=== PATIENT | female | born 1945 | race Caucasian/White ===

== ENCOUNTER → 2018-01-08 | Outpatient (CLI) | payer OTHER | LOC: BHFA 09:30 | PROVIDERS: ATTEND Internal Medicine Cardiovascular Disease | DX: I10 Essential (primary) hypertension (principal); E78.5 Hyperlipidemia, unspecified ==

== ENCOUNTER 2018-05-08 06:52 | Day surgery (SDC) | payer OTHER ==
[2018-05-08] MEDS ORDERED: LR 1,000 ML IV ONE ×2 (07:18→09:09)
[2018-05-08] MEDS ORDERED: LIDOCAINE 1% 2 ML INJ ID PRN (07:18)
[2018-05-08] MEDS ORDERED: fentaNYL 100 MCG/2 ML INJ ONE (08:24)
[2018-05-08] MEDS ORDERED: PROPOFOL/EMULSION 500 MG/50 ML BOTTLE IV ONE (08:25)
--- NOTE | 2018-05-08 08:43 | PDGENHP ---
History & Physical Chief Complaint: PHX POLYPS Pertinent Past, Social, Family History: phx polyps last colon i.n 2011. fhx mother with polyps. tobacco none. alcohol none Relevant Physical Exam: a+ox3. CTA. S1S2. +BS, soft mt Cardiorespiratory Assessment: class 2
--- NOTE | 2018-05-08 08:43 | PDPROPOC ---
Sedation Plan of Care Sedation Plan of Care: vital signs stable, mental status noted, patient educated of risks, benefits, alternatives, patient can tolerate sedation ASA Classification: ASA 2 Planned drugs: fentanyl, midazolam Mallampati Score: Class 2 Mallampati Reference Image: Patient passed 3-3-2 rule?: Yes
[2018-05-08] MEDS ORDERED: fentaNYL 100 MCG/2 ML INJ IVP PRN (09:10)
[2018-05-08] MEDS ORDERED: NALOXONE HCL 0.4 MG/ML INJ IVP PRN (09:10)
[2018-05-08] MEDS ORDERED: LR 500 ML IV PRN (09:10)
[2018-05-08] MEDS ORDERED: DEXAMETHASONE 4 MG/ML VIAL IVP PRN (09:10)
[2018-05-08] MEDS ORDERED: MEPERIDINE 25 MG/0.5 ML AMP IVP PRN (09:10)
[2018-05-08] MEDS ORDERED: ONDANSETRON 4 MG/2 ML VIAL IVP PRN (09:10)
--- NOTE | 2018-05-08 09:10 | PDANEPAE ---
ANE History of Present Illness h/o colonic polyps, f/u colonoscopy w/bx ANE Past Medical History - Cardiovascular History Hx Hypertension: Yes Hx Arrhythmias: No Hx Chest Pain: No Hx Coronary Artery / Peripheral Vascular Disease: No Hx CHF / Valvular Disease: Yes Hx Palpitations: No - Pulmonary History Hx COPD: No Hx Asthma/Reactive Airway Disease: No Hx Recent Upper Respiratory Infection: No Hx Oxygen in Use at Home: No Hx Sleep Apnea: No Sleep Apnea Screening Result - Last Documented: Negative - Neurologic History Hx Cerebrovascular Accident: No Hx Seizures: No Hx Dementia: No - Endocrine History Hx Diabetes: Yes Endocrine History Comment: DM2 - Renal History Hx Renal Disorders: No - Liver History Hx Hepatic Disorders: No - Neurological & Psychiatric Hx Hx Neurological and Psychiatric Disorders: No - Cancer History Hx Cancer: No - Congenital Disorder History Hx Congenital Disorders: No - GI History Hx Gastrointestinal Disorders: Yes Gastrointestinal History Comment: GERD. hiatal hernia - Other Health History Other Health History: wears glasses - Chronic Pain History Chronic Pain: No - Surgical History Prior Surgeries: bilat knee replacements. cholecystectomy. cataracts. dental implants, lower left ANE Review of Systems Review of Systems: - Exercise capacity METS (RN): 4 METS ANE Patient History - Allergies Allergies/Adverse Reactions: metformin Allergy (Verified 05/08/18 07:20) oxycodone Allergy (Verified 05/08/18 07:20) Vomiting - Home Medications Home Medications: Aspirin 81mg (*) 04/30/18 [Last Taken 05/03/18] Chlorthalidone 25 mg (*) 04/30/18 [Last Taken 05/07/18 08:00] Lansoprazole 04/30/18 [Last Taken 05/08/18 05:45] Losartan Potassium 04/30/18 [Last Taken 05/08/18 05:45] Pioglitazone HCl 04/30/18 [Last Taken 05/07/18 08:00] Simvastatin 04/30/18 [Last Taken 05/07/18 19:00] Spironolactone 04/30/18 [Last Taken 05/07/18 08:00] - NPO status NPO Since - Liquids (Date): 05/07/18 NPO Since - Liquids (Time): 22:30 NPO Since - Solids (Date): 05/07/18 NPO Since - Solids (Time): 08:30 - Smoking Hx Smoking Status: Never smoked - Family Anes Hx Family Hx Anesthesia Complications: none ANE Labs/Vital Signs - Vital Signs Height: 160.02 cm Weight: 90.718 kg ANE Physical Exam - Airway Neck exam: decreased ROM, short neck Mallampati Score: Class 3 Mouth exam: small mouth opening - Pulmonary Pulmonary: no respiratory distress - Cardiovascular Cardiovascular: regular rate and rhythym - ASA Status ASA Status: III ANE Anesthesia Plan Anesthesia Plan: GA with mask
--- NOTE | 2018-05-08 09:30 | GIREPORT ---
[facility] - Endoscopy Department Patient Name: Ailyn Gomes Procedure Date: 05/08/2018 8:24 AM Patient Type: Outpatient Attending MD/ ER Physician: Noemi Earl Procedure: Colonoscopy Indications: High risk colon cancer surveillance: Personal history of colonic polyps Providers: Robert Brooke MD Referring MD: Neha aPrdo MD Medicines: Total IV Anesthesia (TIVA) = IV general w/o airway Complications: No immediate complications. Estimated blood loss: Minimal. Description of Procedure: After obtaining informed consent, the scope was passed under direct vis ion. Throughout the procedure, the patient's blood pressure, pulse, and oxyg en saturations were monitored continuously. The Colonoscope with irrigatio n channel was introduced through the anus and advanced to the cecum, identified by the appendiceal orifice, ileocecal valve and palpation. T he colonoscopy was performed without difficulty. The patient tolerated the procedure well. The quality of the bowel preparation was good. Findings: The digital rectal exam findings include non-thrombosed external hemorr hoids. Two polyps were found in the transverse colon. The polyps were 2 mm in size. These polyps were removed with a cold biopsy forceps. Resection and retrieval were complete. Estimated blood loss was minimal. The exam was otherwise without abnormality. Estimated Blood Loss: Estimated blood loss was minimal. Post Op Diagnosis: - Non-thrombosed external hemorrhoids found on digital rectal exam. - Two 2 mm polyps in the transverse colon, removed with a cold biopsy forceps. Resected and retrieved. - The examination was otherwise normal. Recommendation: - Await pathology results. - My office will call with the pathology result with 5-7 days. If you h ave not heard from my office by 12-14, do not assume the pathology is jaclyn l, please call [phone] to get the pathology results. - Repeat colonoscopy in 5 years for surveillance. - High fiber diet. - Patient has a contact number available for emergencies. The signs and symptoms of potential delayed complications were discussed with the pat ient. Return to normal activities tomorrow. Written discharge instructions we re provided to the patient. - Continue present medications. - Discharge patient to home (ambulatory). - Return to primary care physician as previously scheduled. - Thank you for allowing me to help in your patient's care. Do not hesi chaudhary to call with any questions. Attending Participation: I personally performed the entire procedure. Mendy Jones M.D Robert Brooke MD 05/08/2018 9:29:50 AM This report has been signed electronicallyMathew MD Mendy Number of Addenda: 0 Note Initiated On: 05/08/2018 8:24 AM Total Procedure Duration Time 0 hours 16 minutes 47 seconds [email or web address]
[2018-05-08 09:57] VITALS: BP 148/88
--- NOTE | 2018-05-08 16:50 | POSTANESTH ---
Post Anesthetic Evaluation Cardiovascular Status: Normal, Stable Respiratory Status: Normal, Stable Level of Consciousness/Mental Status: Can Participate in Eval Pain Control: Adequate, Prn Tx Ordered Nausea/Vomiting Control: Adequate, Prn Tx Ordered Complications Possibly Related to Anesthesia: None Noted (Seen prior to DC home , doing well, no questions or complaints)
== END 2018-05-08 10:25 | disposition home or self-care (01) ==
LOC: FSGY 06:52
PROVIDERS: ATTEND Internal Medicine Gastroenterology
PROC: 0DBL8ZX Excision of Transverse Colon, Via Natural or Artificial Opening Endoscopic, Diagnostic (ICD-10-PCS; principal; 2018-05-08 08:30)
DX: Z12.11 Encounter for screening for malignant neoplasm of colon (principal); D12.3 Benign neoplasm of transverse colon; K64.4 Residual hemorrhoidal skin tags
CPT/HCPCS: J2704; J3010

== ENCOUNTER → 2018-05-27 | Outpatient (CLI) | payer OTHER | LOC: FIMAGING 11:23 | PROVIDERS: ATTEND Internal Medicine | DX: Z12.31 Encounter for screening mammogram for malignant neoplasm of breast (principal) ==

== ENCOUNTER → 2018-08-01 | Outpatient (CLI) | payer OTHER | LOC: FIMAGING 09:07 | PROVIDERS: ATTEND Internal Medicine | DX: N18.3 Chronic kidney disease, stage 3 (moderate) (principal); E53.8 Deficiency of other specified B group vitamins; N28.1 Cyst of kidney, acquired ==